=== PATIENT | female | born 1935 | race Caucasian/White ===

== ENCOUNTER 2017-09-27 23:04 | Emergency (ER) | payer OTHER ==
[~2017-09-27] VITALS: Ht 154.9 cm; Wt 68.0 kg
[~2017-09-27 23:04] MED LIST: AMOCLA875 PO; BP MED; CHOLESTEROL MED; DILT60ER PO; HYDR1TAB94 PO; Lovastatin20 MG PO; Norco 5-325 Ta1 EACH PO; PRAV20; Prednisone20 MG PO; VERA80 PO; Vibramycin100 MG PO; Vitamin D2000 UNIT PO
[2017-09-27] MEDS ORDERED: COMBIVENT RESPIM4 GM (23:42)
[2017-09-27] MEDS ORDERED: BUDE6HFA INH (23:43)
[2017-09-27 23:45] LABS: BASOPHILS ABSOLUTE AUTO 0.04 K/mm3 (0.00-0.23); BASOPHILS PERCENT AUTO 1 % (0-2); EOSINOPHILS ABSOLUTE AUTO 0.66 K/mm3 (0.00-0.68); EOSINOPHILS PERCENT AUTO 9 % (0-6); Hematocrit 39.8 % (33.0-51.0); IMMATURE GRAN ABSOLUTE AUTO 0.02 K/mm3 (0.00-0.10); IMMATURE GRAN PERCENT AUTO 0 % (0-1); LYMPHOCYTES ABSOLUTE AUTO 1.15 K/mm3 (0.84-5.20); LYMPHOCYTES PERCENT AUTO 15 % (21-46); MONOCYTES ABSOLUTE AUTO 0.59 K/mm3 (0.16-1.47); MONOCYTES PERCENT AUTO 8 % (4-13); Mean Corpuscular HGB 31.6 pg (26.0-34.0); Mean Corpuscular HGB Conc 32.7 g/dL (31.5-36.5); Mean Corpuscular Volume 97 fL (80-100); Mean Platelet Volume 8.9 fL (9.1-12.4); NEUTROPHILS ABSOLUTE AUTO 5.17 K/mm3 (1.96-9.15); NEUTROPHILS PERCENT AUTO 68 % (41-73); Platelet Count 259 K/mm3 (150-400); RDW Coefficient Variation 14.1 % (11.7-14.2); Red Blood Cell Count 4.12 M/mm3 (3.80-5.20); White Blood Cell Count 7.63 K/mm3 (4.00-11.30)
[2017-09-28 00:07] LABS: Alanine Aminotransfer (ALT/SGP 17 U/L (12-78); Albumin, Blood 3.5 g/dL (3.4-5.0); Albumin/Globulin Ratio 0.9 (0.8-1.8); Alk Phos 59 U/L (50-136); Anion Gap 7 mmol/L (6-16); Aspartate Aminotrans (AST/SGOT 23 U/L (12-37); Bilirubin, Total 0.4 mg/dL (0.1-1.0); Blood Urea Nitrogen 17 mg/dL (8-24); Bun/Creatinine Ratio 28.4 (12.0-20.0); CO2, Blood 28 mmol/L (21-32); Calcium, Blood 8.6 mg/dL (8.5-10.1); Chloride, Blood 107 mmol/L (98-108); Globulin, Blood 3.7 g/dL (2.2-4.0); Glomerular Filtration Rate >60 (60-); Glucose, Blood 89 mg/dL (70-99); Potassium, Blood 3.5 mmol/L (3.5-5.5); Sodium, Blood 142 mmol/L (136-145); Total Protein, Blood 7.2 g/dL (6.4-8.2); Troponin I <0.015 ng/mL (0.000-0.040)
[2017-09-28] MEDS ORDERED: Prednisone20 MG PO (00:21)
[2017-09-28] MEDS ORDERED: BENZ100A PO (00:21)
[2017-09-28] MEDS ORDERED: Zithromax250 MG PO (00:21)
[2017-09-28] MEDS ORDERED: ALBU2.5V5 NEB (00:54)
[2017-09-28] MEDS ORDERED: SUDOGEST SINUS1 EACH PO (00:54)
== END 2017-09-28 01:09 | disposition home or self-care (01) ==
LOC: ER 23:04
PROVIDERS: Emergency Medicine
DX: J44.1 Chronic obstructive pulmonary disease with (acute) exacerbation (principal); Z87.891 Personal history of nicotine dependence; Z88.2 Allergy status to sulfonamides; Z88.5 Allergy status to narcotic agent; Z79.899 Other long term (current) drug therapy
CPT/HCPCS: 36415; 71046; 80053; 84484; 85025; 93005; 93010; 94644; 96361; 96374; 99285-25; J2930; J7030

== ENCOUNTER 2017-10-21 20:00 | Inpatient (IN) | payer OTHER ==
[~2017-10-21] VITALS: Ht 157.5 cm; Wt 52.2 kg
[~2017-10-21 20:00] MED LIST changes: +ALBU2.5V5 NEB; +BENZ100A PO; +BUDE6HFA INH; +COMBIVENT RESPIM4 GM; +SUDOGEST SINUS1 EACH PO; +Zithromax250 MG PO
[2017-10-21 21:52] LABS: BASOPHILS ABSOLUTE AUTO 0.07 K/mm3 (0.00-0.23); BASOPHILS PERCENT AUTO 1 % (0-2); EOSINOPHILS PERCENT AUTO 4 % (0-6); Hematocrit 40.4 % (33.0-51.0); Hemoglobin 13.5 g/dL (11.5-16.0); IMMATURE GRAN ABSOLUTE AUTO 0.02 K/mm3 (0.00-0.10); IMMATURE GRAN PERCENT AUTO 0 % (0-1); LYMPHOCYTES ABSOLUTE AUTO 1.08 K/mm3 (0.84-5.20); LYMPHOCYTES PERCENT AUTO 12 % (21-46); MONOCYTES PERCENT AUTO 7 % (4-13); Mean Corpuscular HGB 31.6 pg (26.0-34.0); Mean Corpuscular HGB Conc 33.4 g/dL (31.5-36.5); Mean Corpuscular Volume 95 fL (80-100); Mean Platelet Volume 8.9 fL (9.1-12.4); NEUTROPHILS ABSOLUTE AUTO 7.04 K/mm3 (1.96-9.15); NEUTROPHILS PERCENT AUTO 77 % (41-73); Platelet Count 295 K/mm3 (150-400); RDW Coefficient Variation 13.7 % (11.7-14.2); RDW Standard Deviation 47.7 fL (35.1-46.3); Red Blood Cell Count 4.27 M/mm3 (3.80-5.20); White Blood Cell Count 9.21 K/mm3 (4.00-11.30)
[2017-10-21 22:16] LABS: Alanine Aminotransfer (ALT/SGP 24 U/L (12-78); Albumin, Blood 3.8 g/dL (3.4-5.0); Albumin/Globulin Ratio 1.1 (0.8-1.8); Alk Phos 50 U/L (50-136); Anion Gap 12 mmol/L (6-16); Aspartate Aminotrans (AST/SGOT 26 U/L (12-37); Bilirubin, Total 0.7 mg/dL (0.1-1.0); Blood Urea Nitrogen 10 mg/dL (8-24); Bun/Creatinine Ratio 20.4 (12.0-20.0); CO2, Blood 26 mmol/L (21-32); Calcium, Blood 9.4 mg/dL (8.5-10.1); Chloride, Blood 101 mmol/L (98-108); Creatinine, Blood 0.49 mg/dL (0.40-1.00); Globulin, Blood 3.6 g/dL (2.2-4.0); Glomerular Filtration Rate >60 (60-); Glucose, Blood 87 mg/dL (70-99); Potassium, Blood 3.3 mmol/L (3.5-5.5); Sodium, Blood 139 mmol/L (136-145); Total Protein, Blood 7.4 g/dL (6.4-8.2); Troponin I <0.015 ng/mL (0.000-0.040)
[2017-10-22 09:30] LABS: Hematocrit 42.5 % (33.0-51.0); Hemoglobin 13.7 g/dL (11.5-16.0); Mean Corpuscular HGB 31.2 pg (26.0-34.0); Mean Corpuscular HGB Conc 32.2 g/dL (31.5-36.5); Mean Corpuscular Volume 97 fL (80-100); Mean Platelet Volume 9.1 fL (9.1-12.4); Platelet Count 303 K/mm3 (150-400); RDW Coefficient Variation 13.8 % (11.7-14.2); RDW Standard Deviation 48.9 fL (35.1-46.3); Red Blood Cell Count 4.39 M/mm3 (3.80-5.20); White Blood Cell Count 6.56 K/mm3 (4.00-11.30)
[2017-10-22 09:47] LABS: Alanine Aminotransfer (ALT/SGP 20 U/L (12-78); Albumin, Blood 3.5 g/dL (3.4-5.0); Albumin/Globulin Ratio 0.9 (0.8-1.8); Alk Phos 51 U/L (50-136); Anion Gap 8 mmol/L (6-16); Aspartate Aminotrans (AST/SGOT 26 U/L (12-37); Bilirubin, Total 0.9 mg/dL (0.1-1.0); Blood Urea Nitrogen 10 mg/dL (8-24); Bun/Creatinine Ratio 17.6 (12.0-20.0); CO2, Blood 27 mmol/L (21-32); Calcium, Blood 8.4 mg/dL (8.5-10.1); Chloride, Blood 106 mmol/L (98-108); Creatinine, Blood 0.57 mg/dL (0.40-1.00); Globulin, Blood 3.8 g/dL (2.2-4.0); Glomerular Filtration Rate >60 (60-); Glucose, Blood 86 mg/dL (70-99); Sodium, Blood 141 mmol/L (136-145); Total Protein, Blood 7.3 g/dL (6.4-8.2)
[2017-10-23 08:29] LABS: Hematocrit 44.2 % (33.0-51.0); Hemoglobin 13.8 g/dL (11.5-16.0); Mean Corpuscular HGB 31.5 pg (26.0-34.0); Mean Corpuscular HGB Conc 31.2 g/dL (31.5-36.5); Platelet Count 301 K/mm3 (150-400); RDW Coefficient Variation 13.6 % (11.7-14.2); RDW Standard Deviation 51.2 fL (35.1-46.3); Red Blood Cell Count 4.38 M/mm3 (3.80-5.20); White Blood Cell Count 3.38 K/mm3 (4.00-11.30)
[2017-10-23 08:34] LABS: Anion Gap 14 mmol/L (6-16); Blood Urea Nitrogen 21 mg/dL (8-24); Bun/Creatinine Ratio 33.2 (12.0-20.0); CO2, Blood 21 mmol/L (21-32); Calcium, Blood 8.7 mg/dL (8.5-10.1); Chloride, Blood 106 mmol/L (98-108); Creatinine, Blood 0.63 mg/dL (0.40-1.00); Glomerular Filtration Rate >60 (60-); Glucose, Blood 59 mg/dL (70-99); Mean Corpuscular Volume 101 fL (80-100); Potassium, Blood 4.2 mmol/L (3.5-5.5); Sodium, Blood 141 mmol/L (136-145)
[2017-10-23 08:58] LABS: BAND PERCENT MAN 11 % (0-8); BASOPHILS ABSOLUTE MAN 0.06 K/mm3 (0.00-0.23); BASOPHILS PERCENT MAN 2 % (0-2); EOSINOPHILS ABSOLUTE MAN 0.16 K/mm3 (0.00-0.68); EOSINOPHILS PERCENT MAN 5 % (0-6); LYMPHOCYTES ABSOLUTE MAN 1.18 K/mm3 (0.84-5.20); LYMPHOCYTES PERCENT MAN 35 % (21-46); MONOCYTES ABSOLUTE MAN 0.37 K/mm3 (0.16-1.47); MONOCYTES PERCENT MAN 11 % (4-13); NEUTROPHILS ABSOLUTE MAN 1.58 K/mm3 (1.96-9.15); SEG NEUTROPHILS PERCENT MAN 36 % (41-73); TOTAL CELLS COUNTED 100
[2017-10-24 04:30] LABS: BASOPHILS ABSOLUTE AUTO 0.03 K/mm3 (0.00-0.23); BASOPHILS PERCENT AUTO 1 % (0-2); EOSINOPHILS ABSOLUTE AUTO 0.26 K/mm3 (0.00-0.68); EOSINOPHILS PERCENT AUTO 7 % (0-6); Hematocrit 41.2 % (33.0-51.0); Hemoglobin 13.2 g/dL (11.5-16.0); IMMATURE GRAN ABSOLUTE AUTO 0.01 K/mm3 (0.00-0.10); IMMATURE GRAN PERCENT AUTO 0 % (0-1); LYMPHOCYTES ABSOLUTE AUTO 0.54 K/mm3 (0.84-5.20); LYMPHOCYTES PERCENT AUTO 15 % (21-46); MONOCYTES ABSOLUTE AUTO 0.68 K/mm3 (0.16-1.47); MONOCYTES PERCENT AUTO 19 % (4-13); Mean Corpuscular HGB 30.8 pg (26.0-34.0); Mean Platelet Volume 9.1 fL (9.1-12.4); NEUTROPHILS ABSOLUTE AUTO 2.11 K/mm3 (1.96-9.15); NEUTROPHILS PERCENT AUTO 58 % (41-73); Platelet Count 292 K/mm3 (150-400); RDW Coefficient Variation 13.6 % (11.7-14.2); RDW Standard Deviation 47.9 fL (35.1-46.3); Red Blood Cell Count 4.29 M/mm3 (3.80-5.20); White Blood Cell Count 3.63 K/mm3 (4.00-11.30)
[2017-10-24 04:31] LABS: Mean Corpuscular Volume 96 fL (80-100)
[2017-10-24 04:48] LABS: Anion Gap 5 mmol/L (6-16); Blood Urea Nitrogen 31 mg/dL (8-24); CO2, Blood 33 mmol/L (21-32); Calcium, Blood 8.5 mg/dL (8.5-10.1); Chloride, Blood 102 mmol/L (98-108); Creatinine, Blood 0.48 mg/dL (0.40-1.00); Glomerular Filtration Rate >60 (60-); Glucose, Blood 151 mg/dL (70-99); Potassium, Blood 4.3 mmol/L (3.5-5.5); Sodium, Blood 140 mmol/L (136-145)
[2017-10-25 05:14] LABS: BASOPHILS ABSOLUTE AUTO 0.02 K/mm3 (0.00-0.23); BASOPHILS PERCENT AUTO 0 % (0-2); Hematocrit 40.6 % (33.0-51.0); LYMPHOCYTES ABSOLUTE AUTO 0.49 K/mm3 (0.84-5.20); LYMPHOCYTES PERCENT AUTO 10 % (21-46); MONOCYTES ABSOLUTE AUTO 0.72 K/mm3 (0.16-1.47); MONOCYTES PERCENT AUTO 14 % (4-13); Mean Corpuscular HGB 31.4 pg (26.0-34.0); Mean Corpuscular Volume 98 fL (80-100); Mean Platelet Volume 9.3 fL (9.1-12.4); Platelet Count 272 K/mm3 (150-400); RDW Coefficient Variation 13.9 % (11.7-14.2); RDW Standard Deviation 50.7 fL (35.1-46.3); Red Blood Cell Count 4.14 M/mm3 (3.80-5.20); White Blood Cell Count 5.17 K/mm3 (4.00-11.30)
[2017-10-25 05:16] LABS: EOSINOPHILS PERCENT AUTO 0 % (0-6); IMMATURE GRAN ABSOLUTE AUTO 0.04 K/mm3 (0.00-0.10); IMMATURE GRAN PERCENT AUTO 1 % (0-1); NEUTROPHILS PERCENT AUTO 75 % (41-73)
[2017-10-25 05:44] LABS: Anion Gap 7 mmol/L (6-16); Blood Urea Nitrogen 24 mg/dL (8-24); Bun/Creatinine Ratio 42.3 (12.0-20.0); CO2, Blood 33 mmol/L (21-32); Calcium, Blood 8.4 mg/dL (8.5-10.1); Chloride, Blood 101 mmol/L (98-108); Creatinine, Blood 0.57 mg/dL (0.40-1.00); Glomerular Filtration Rate >60 (60-); Glucose, Blood 164 mg/dL (70-99); Potassium, Blood 4.1 mmol/L (3.5-5.5); Sodium, Blood 141 mmol/L (136-145)
[2017-10-26 05:24] LABS: BASOPHILS ABSOLUTE AUTO 0.06 K/mm3 (0.00-0.23); BASOPHILS PERCENT AUTO 1 % (0-2); EOSINOPHILS ABSOLUTE AUTO 0.04 K/mm3 (0.00-0.68); EOSINOPHILS PERCENT AUTO 1 % (0-6); Hematocrit 39.5 % (33.0-51.0); Hemoglobin 12.5 g/dL (11.5-16.0); IMMATURE GRAN PERCENT AUTO 2 % (0-1); LYMPHOCYTES ABSOLUTE AUTO 0.75 K/mm3 (0.84-5.20); LYMPHOCYTES PERCENT AUTO 11 % (21-46); MONOCYTES ABSOLUTE AUTO 1.09 K/mm3 (0.16-1.47); MONOCYTES PERCENT AUTO 16 % (4-13); Mean Corpuscular HGB 30.6 pg (26.0-34.0); Mean Corpuscular HGB Conc 31.6 g/dL (31.5-36.5); Mean Corpuscular Volume 97 fL (80-100); Mean Platelet Volume 9.4 fL (9.1-12.4); NEUTROPHILS ABSOLUTE AUTO 4.74 K/mm3 (1.96-9.15); NEUTROPHILS PERCENT AUTO 70 % (41-73); Platelet Count 266 K/mm3 (150-400); RDW Coefficient Variation 13.9 % (11.7-14.2); RDW Standard Deviation 49.4 fL (35.1-46.3); Red Blood Cell Count 4.08 M/mm3 (3.80-5.20); White Blood Cell Count 6.78 K/mm3 (4.00-11.30)
[2017-10-26 05:41] LABS: Anion Gap 3 mmol/L (6-16); Blood Urea Nitrogen 23 mg/dL (8-24); Bun/Creatinine Ratio 51.1 (12.0-20.0); CO2, Blood 34 mmol/L (21-32); Calcium, Blood 8.3 mg/dL (8.5-10.1); Chloride, Blood 103 mmol/L (98-108); Creatinine, Blood 0.45 mg/dL (0.40-1.00); Glomerular Filtration Rate >60 (60-); Glucose, Blood 137 mg/dL (70-99); Sodium, Blood 140 mmol/L (136-145)
[2017-10-28 05:36] LABS: Anion Gap 7 mmol/L (6-16); Blood Urea Nitrogen 21 mg/dL (8-24); Bun/Creatinine Ratio 47.1 (12.0-20.0); CO2, Blood 25 mmol/L (21-32); Calcium, Blood 8.1 mg/dL (8.5-10.1); Chloride, Blood 105 mmol/L (98-108); Creatinine, Blood 0.45 mg/dL (0.40-1.00); Glomerular Filtration Rate >60 (60-); Glucose, Blood 120 mg/dL (70-99); Potassium, Blood 4.4 mmol/L (3.5-5.5); Sodium, Blood 137 mmol/L (136-145)
[2017-10-29] MEDS ORDERED: COMBIVENT RESPIM4 GM INH (18:36)
[2017-10-29] MEDS ORDERED: ACET325 PO (18:37)
[2017-10-29] MEDS ORDERED: ALBU2.5V5 NEB (18:39)
== END 2017-10-29 19:15 | disposition home or self-care (01) | DRG 336 ==
LOC: ER 20:00 → MEDS 10-22 01:38
PROVIDERS: Emergency Medicine; Internal Medicine; Student in an Organized Health Care Education/Training Program; Surgery
PROC: 0DQV4ZZ Repair Mesentery, Percutaneous Endoscopic Approach (ICD-10-PCS; principal; 2017-10-24 14:00)
PROC: 0DNU4ZZ Release Omentum, Percutaneous Endoscopic Approach (ICD-10-PCS; 2017-10-24 14:00)
DX: K56.609 Unspecified intestinal obstruction, unspecified as to partial versus complete obstruction (principal); G24.02 Drug induced acute dystonia; I10 Essential (primary) hypertension; T17.920A Food in respiratory tract, part unspecified causing asphyxiation, initial encounter; K46.9 Unspecified abdominal hernia without obstruction or gangrene; J44.9 Chronic obstructive pulmonary disease, unspecified; E78.5 Hyperlipidemia, unspecified; Z85.038 Personal history of other malignant neoplasm of large intestine; Z93.3 Colostomy status; M81.0 Age-related osteoporosis without current pathological fracture; E86.9 Volume depletion, unspecified; K59.00 Constipation, unspecified
CPT/HCPCS: 36415; 71045; 74019; 74177; 74250; 80048; 80053; 82947; 83605; 84484; 85025; 85027; 86850; 86900; 86901; 93005; 93010; 94010; 94640; 94664; 94667; 94760; 96361; 96374; 96375; 97110; 97116; 97162; 97530; 98960; 99285-25; G8978; G8979; J0690; J1100; J1170; J1200; J1650; J1885; J2250; J2370; J2405; J2550; J2710; J3010; J3480; J7030; J7120; Q9967

== ENCOUNTER 2017-10-30 20:55 | Emergency (ER) | payer OTHER ==
[~2017-10-30] VITALS: Ht 157.5 cm; Wt 52.2 kg
[~2017-10-30 20:55] MED LIST changes: +ACET325 PO; +COMBIVENT RESPIM4 GM INH
[2017-10-31 00:31] LABS: BASOPHILS ABSOLUTE AUTO 0.06 K/mm3 (0.00-0.23); BASOPHILS PERCENT AUTO 1 % (0-2); EOSINOPHILS ABSOLUTE AUTO 0.24 K/mm3 (0.00-0.68); EOSINOPHILS PERCENT AUTO 3 % (0-6); Hematocrit 37.2 % (33.0-51.0); Hemoglobin 12.2 g/dL (11.5-16.0); IMMATURE GRAN ABSOLUTE AUTO 0.57 K/mm3 (0.00-0.10); IMMATURE GRAN PERCENT AUTO 7 % (0-1); LYMPHOCYTES ABSOLUTE AUTO 1.07 K/mm3 (0.84-5.20); LYMPHOCYTES PERCENT AUTO 13 % (21-46); MONOCYTES ABSOLUTE AUTO 0.88 K/mm3 (0.16-1.47); MONOCYTES PERCENT AUTO 10 % (4-13); Mean Corpuscular HGB 31.9 pg (26.0-34.0); Mean Corpuscular HGB Conc 32.8 g/dL (31.5-36.5); Mean Corpuscular Volume 97 fL (80-100); Mean Platelet Volume 9.4 fL (9.1-12.4); NEUTROPHILS ABSOLUTE AUTO 5.71 K/mm3 (1.96-9.15); NEUTROPHILS PERCENT AUTO 67 % (41-73); Platelet Count 344 K/mm3 (150-400); RDW Coefficient Variation 13.6 % (11.7-14.2); Red Blood Cell Count 3.82 M/mm3 (3.80-5.20); White Blood Cell Count 8.53 K/mm3 (4.00-11.30)
[2017-10-31 00:39] LABS: Anion Gap 6 mmol/L (6-16); Blood Urea Nitrogen 16 mg/dL (8-24); Bun/Creatinine Ratio 28.1 (12.0-20.0); CO2, Blood 28 mmol/L (21-32); Calcium, Blood 8.1 mg/dL (8.5-10.1); Chloride, Blood 104 mmol/L (98-108); Creatinine, Blood 0.57 mg/dL (0.40-1.00); Glomerular Filtration Rate >60 (60-); Glucose, Blood 92 mg/dL (70-99); Potassium, Blood 3.6 mmol/L (3.5-5.5); Sodium, Blood 138 mmol/L (136-145)
[2017-10-31 00:49] LABS: BAND PERCENT MAN 2 % (0-8); BASOPHILS ABSOLUTE MAN 0.08 K/mm3 (0.00-0.23); BASOPHILS PERCENT MAN 1 % (0-2); EOSINOPHILS ABSOLUTE MAN 0.25 K/mm3 (0.00-0.68); EOSINOPHILS PERCENT MAN 3 % (0-6); LYMPHOCYTES ABSOLUTE MAN 0.93 K/mm3 (0.84-5.20); LYMPHOCYTES PERCENT MAN 11 % (21-46); METAMYELOCYTE ABSOLUTE MAN 0.17 K/mm3 (0.00-0.00); METAMYELOCYTE PERCENT MAN 2 % (0-0); MONOCYTES ABSOLUTE MAN 0.68 K/mm3 (0.16-1.47); MONOCYTES PERCENT MAN 8 % (4-13); MYELOCYTE ABSOLUTE MAN 0.17 K/mm3 (0.00-0.00); MYELOCYTE PERCENT MAN 2 % (0-0); NEUTROPHILS ABSOLUTE MAN 6.22 K/mm3 (1.96-9.15); SEG NEUTROPHILS PERCENT MAN 71 % (41-73); TOTAL CELLS COUNTED 100
== END 2017-10-31 04:43 | disposition home or self-care (01) ==
LOC: ER 20:55
PROVIDERS: Emergency Medicine
DX: L98.8 Other specified disorders of the skin and subcutaneous tissue (principal); G89.18 Other acute postprocedural pain; R10.9 Unspecified abdominal pain; Z88.2 Allergy status to sulfonamides; Z88.5 Allergy status to narcotic agent; Z88.8 Allergy status to other drugs, medicaments and biological substances; Z79.899 Other long term (current) drug therapy; J44.9 Chronic obstructive pulmonary disease, unspecified; Z87.891 Personal history of nicotine dependence; Z85.038 Personal history of other malignant neoplasm of large intestine
CPT/HCPCS: 36415; 74022; 80048; 85025; 93970; 96365; 99285-25

== ENCOUNTER → 2017-11-27 | Outpatient (CLI) | payer OTHER | END | disposition home or self-care (01) | LOC: LAB SHORT 13:24 → LAB 13:24 | DX: R30.0 Dysuria (principal) | CPT/HCPCS: 87077; 87086; 87186 ==

== ENCOUNTER 2021-11-20 00:12 | Emergency (ER) | payer OTHER ==
[~2021-11-20] VITALS: Ht 149.9 cm; Wt 47.6 kg
[2021-11-20 01:00] LABS: BASOPHILS ABSOLUTE AUTO 0.07 K/mm3 (0.00-0.23); BASOPHILS PERCENT AUTO 1 % (0-2); EOSINOPHILS ABSOLUTE AUTO 0.17 K/mm3 (0.00-0.68); EOSINOPHILS PERCENT AUTO 2 % (0-6); Hematocrit 44.2 % (33.0-51.0); Hemoglobin 14.3 g/dL (11.5-16.0); IMMATURE GRAN ABSOLUTE AUTO 0.01 K/mm3 (0.00-0.10); IMMATURE GRAN PERCENT AUTO 0 % (0-1); LYMPHOCYTES ABSOLUTE AUTO 2.57 K/mm3 (0.84-5.20); LYMPHOCYTES PERCENT AUTO 28 % (21-46); MONOCYTES ABSOLUTE AUTO 0.77 K/mm3 (0.16-1.47); MONOCYTES PERCENT AUTO 8 % (4-13); Mean Corpuscular HGB 30.3 pg (26.0-34.0); Mean Corpuscular HGB Conc 32.4 g/dL (31.5-36.5); Mean Corpuscular Volume 94 fL (80-100); Mean Platelet Volume 9.3 fL (9.1-12.4); NEUTROPHILS ABSOLUTE AUTO 5.71 K/mm3 (1.96-9.15); NEUTROPHILS PERCENT AUTO 61 % (41-73); Platelet Count 319 K/mm3 (150-400); RDW Coefficient Variation 14.2 % (11.7-14.2); RDW Standard Deviation 48.7 fL (35.1-46.3); Red Blood Cell Count 4.72 M/mm3 (3.80-5.20)
[2021-11-20 01:19] LABS: Albumin, Blood 3.3 g/dL (3.4-5.0); Albumin/Globulin Ratio 0.8 (0.8-1.8); Bilirubin, Total 0.3 mg/dL (0.1-1.0); Bun/Creatinine Ratio 38.2 (12.0-20.0); Calcium, Blood 9.3 mg/dL (8.5-10.1); Creatinine, Blood 0.45 mg/dL (0.40-1.00); Globulin, Blood 3.9 g/dL (2.2-4.0); Magnesium, Blood 2.1 mg/dL (1.6-2.4); Thyroid Stimulating Hormone 2.25 uIU/mL (0.360-4.800); Total Protein, Blood 7.2 g/dL (6.4-8.2)
== END 2021-11-20 03:42 | disposition home or self-care (01) ==
LOC: ER 00:12
PROVIDERS: Emergency Medicine
DX: I47.1 Supraventricular tachycardia (principal); J43.9 Emphysema, unspecified; Z87.891 Personal history of nicotine dependence; Z79.899 Other long term (current) drug therapy
CPT/HCPCS: 36415; 71045; 80053; 83735; 84443; 84484; 85025; 93005; 93010

== ENCOUNTER 2024-01-10 21:49 | Observation (INO) | payer OTHER ==
[~2024-01-10] VITALS: Ht 154.9 cm; Wt 47.3 kg
[2024-01-10] MEDS ORDERED: DILT60 PO (22:23)
[2024-01-10] MEDS ORDERED: LOSA50 PO (22:23)
[2024-01-10] MEDS ORDERED: IPRAT-ALBUT 0.5-3 ML INH (22:24)
[2024-01-10] MEDS ORDERED: TRELEGY ELLIPT1 EACH INH (22:24)
[2024-01-10 22:44] LABS: BASOPHILS ABSOLUTE AUTO 0.03 K/mm3 (0.00-0.23); BASOPHILS PERCENT AUTO 1 % (0-2); EOSINOPHILS ABSOLUTE AUTO 0.14 K/mm3 (0.00-0.68); EOSINOPHILS PERCENT AUTO 2 % (0-6); Hematocrit 38.9 % (33.0-51.0); IMMATURE GRAN ABSOLUTE AUTO 0.01 K/mm3 (0.00-0.10); IMMATURE GRAN PERCENT AUTO 0 % (0-1); LYMPHOCYTES ABSOLUTE AUTO 1.54 K/mm3 (0.84-5.20); LYMPHOCYTES PERCENT AUTO 24 % (21-46); MONOCYTES ABSOLUTE AUTO 0.54 K/mm3 (0.16-1.47); MONOCYTES PERCENT AUTO 8 % (4-13); Mean Corpuscular HGB 32.4 pg (26.0-34.0); Mean Corpuscular HGB Conc 33.4 g/dL (31.5-36.5); Mean Corpuscular Volume 97 fL (80-100); Mean Platelet Volume 9.1 fL (9.1-12.4); NEUTROPHILS PERCENT AUTO 66 % (41-73); Platelet Count 243 K/mm3 (150-400); RDW Coefficient Variation 14.3 % (11.7-14.2); RDW Standard Deviation 50.8 fL (35.1-46.3); Red Blood Cell Count 4.01 M/mm3 (3.80-5.20); White Blood Cell Count 6.56 K/mm3 (4.00-11.30)
[2024-01-10] MEDS ORDERED: NS 500 ML IV SCH (22:55)
[2024-01-10 23:05] LABS: Albumin, Blood 3.1 g/dL (3.4-5.0); Bilirubin, Total 0.5 mg/dL (0.1-1.0); Bun/Creatinine Ratio 39.3 (12.0-20.0); Calcium, Blood 8.7 mg/dL (8.5-10.1); Creatinine, Blood 0.56 mg/dL (0.40-1.00); Globulin, Blood 3.2 g/dL (2.2-4.0); Potassium, Blood 3.5 mmol/L (3.5-5.5); Total Protein, Blood 6.3 g/dL (6.4-8.2)
[2024-01-11] MEDS ORDERED: FLU VACC TS2024-25(6MOS UP)/PF 45 MCG/0.5 ML SYRINGE IM SCH (02:20)
[2024-01-11] MEDS ORDERED: Loperamide HCl 2 MG Cap PO PRN (02:40)
[2024-01-11] MEDS ORDERED: Lactated Ringer's 1,000 ML IV SCH ×2 (02:45→03:00)
[2024-01-11] MEDS ORDERED: Potassium Chl 20MEQ/Water100ML 100 ML IV SCH (02:55)
[2024-01-11 04:11] LABS: BASOPHILS ABSOLUTE AUTO 0.02 K/mm3 (0.00-0.23); BASOPHILS PERCENT AUTO 0 % (0-2); EOSINOPHILS ABSOLUTE AUTO 0.13 K/mm3 (0.00-0.68); EOSINOPHILS PERCENT AUTO 2 % (0-6); Hematocrit 38.1 % (33.0-51.0); Hemoglobin 12.7 g/dL (11.5-16.0); IMMATURE GRAN ABSOLUTE AUTO 0.01 K/mm3 (0.00-0.10); IMMATURE GRAN PERCENT AUTO 0 % (0-1); LYMPHOCYTES ABSOLUTE AUTO 1.43 K/mm3 (0.84-5.20); LYMPHOCYTES PERCENT AUTO 26 % (21-46); MONOCYTES ABSOLUTE AUTO 0.46 K/mm3 (0.16-1.47); MONOCYTES PERCENT AUTO 8 % (4-13); Mean Corpuscular HGB 32.5 pg (26.0-34.0); Mean Corpuscular HGB Conc 33.3 g/dL (31.5-36.5); Mean Corpuscular Volume 97 fL (80-100); Mean Platelet Volume 9.2 fL (9.1-12.4); NEUTROPHILS ABSOLUTE AUTO 3.49 K/mm3 (1.96-9.15); NEUTROPHILS PERCENT AUTO 63 % (41-73); Platelet Count 218 K/mm3 (150-400); RDW Coefficient Variation 14.4 % (11.7-14.2); RDW Standard Deviation 51.3 fL (35.1-46.3); Red Blood Cell Count 3.91 M/mm3 (3.80-5.20); White Blood Cell Count 5.54 K/mm3 (4.00-11.30)
[2024-01-11 04:30] LABS: Albumin/Globulin Ratio 0.9 (0.8-1.8); Bilirubin, Total 0.5 mg/dL (0.1-1.0); Bun/Creatinine Ratio 40.8 (12.0-20.0); Calcium, Blood 8.9 mg/dL (8.5-10.1); Creatinine, Blood 0.47 mg/dL (0.40-1.00); Globulin, Blood 3.3 g/dL (2.2-4.0); Potassium, Blood 3.6 mmol/L (3.5-5.5); Total Protein, Blood 6.3 g/dL (6.4-8.2)
[2024-01-11] MEDS ORDERED: Mag Sulfate 1 GM/D5% 100ML 100 ML IV STA (06:40)
[2024-01-11] MEDS ORDERED: Enoxaparin 30 MG/0.3 ML SYR SC SCH (09:00)
[2024-01-11] MEDS ORDERED: Apixaban 5 MG Tab PO SCH (11:00)
[2024-01-11] MEDS ORDERED: Atorvastatin 40 MG Tab PO SCH (11:00)
[2024-01-11] MEDS ORDERED: Metoprolol Succinate 25 MG TABCR PO SCH (11:00)
[2024-01-11 12:31] VITALS: BP 150/86
--- NOTE | 2024-01-11 14:30 | NUR ---
PT ARRIVED TO [facility] FROM ER VIA [facility] @ 1220. TELEMETRY MONITORING PLACED, HR 70s NSR ON MONITOR. PT ABLE TO AMBULATE FROM [facility] TO RESTROOM AND BACK TO BED WITH SBA. FAMILY AT BEDSIDE. PT HAS NO COMPLAINTS ON ARRIVAL TO ROOM. SEE DOCUMENTED VS AND ASSESSMENT. PT HAS BEEN RESTING QUIETLY IN BED WITH FAMILY IN ROOM SINCE ARRIVAL. MEDICATION GIVEN PER MD ORDERS. PT AMBULATING IN HALLWAY WITH HER FAMILY, GAIT STEADY. PT HAS HAD NO COMPLAINTS OR CONCERNS. PT AND FAMILY ORIENTED TO CALL LIGHT/ROOM AND UNIT ROUTINES. CALL LIGHT IN REACH AND BED IN LOWEST, LOCKED POSITION. WILL CONTINUE TO MONITOR.
[2024-01-11 17:19] VITALS: BP 144/74
--- NOTE | 2024-01-11 17:41 | NUR ---
NO ACUTE CHANGES SINCE ARRIVAL TO PCU. HR CONTINUES TO BE SINUS WITH OCCASIONAL PACED BEATS. PT UP AMBULATING WITH FAMILY IN THE HALLS FOR THE SECOND TIME THIS SHIFT. NO COMPLAINTS OR CONCERNS. PT REPORTS NO FURTHER PALPITATIONS SINCE ARRIVAL TO HOSPITAL. PT DENIES NEEDS AT THIS TIME. FAMILY AT BEDSIDE, CALL LIGHT IN REACH, BED IN LOWEST LOCKED POSITION. WILL CONTINUE TO MONITOR AND GIVE REPORT TO NOC SHIFT RN.
[2024-01-11 20:13] VITALS: BP 173/86
--- NOTE | 2024-01-11 21:50 | NUR ---
LATE ASSUMPTION OF CARE NOTE. PT AOX4, PLEASANT, COOPERATIVE WITH CARE, ABLE TO MAKE NEEDS KNOWN. DENIED PAIN THUS FAR THIS SHIFT. VITALS STABLE OUTSIDE OF ELEVATED BP. SPOKE WITH DR. ZAPATA WHO INFORMED THAT HE IS NOT WORRIED ABOUT IT UNLESS PATIENT SUSTAINS OVER 180 SYSTOLIC. TELE HAS SHOWN SINUS SINCE SHIFT ONSET. MAINTAINS ADEQUATE SATURATION ON ROOM AIR. CONTINENT THUS FAR, STEADY SBA TRANSFER. ANTICIPATING DISCHARGE TOMORROW. BED LOCKED IN LOWEST POSITION. CALL LIGHT LEFT WITHIN REACH. CONTINUING TO MONITOR.
[2024-01-12 00:40] VITALS: BP 152/97
--- NOTE | 2024-01-12 00:47 | NUR ---
0000 NOTE. PT SLEEPING AT TIME OF ENTERING ROOM FOR VITALS. DENIED ANY NEEDS OF ANY KIND. DENIED PAIN. NOTIFIED OF NEED TO INFORM STAFF ON VOIDING SO THAT WE CAN TRACK OUTPUT TO WHICH PT WAS AGREEABLE. OTHERWISE PT ENCOURAGED TO GET SOME MORE REST. BED LOCKED IN LOWEST POSITION. CALL LIGHT LEFT WITHIN REACH. CONTINUING TO MONITOR.
[2024-01-12 03:39] VITALS: BP 180/101
--- NOTE | 2024-01-12 04:22 | NUR ---
SHIFT SUMMARY. SHIFT HAS BEEN UNREMARKABLE. PT REMAINS AOX4, PLEASANT, COOPERATIVE WITH CARE, ABLE TO MAKE NEEDS KNOWN. CALLS APPROPRIATELY FOR ASSISTANCE. HAS BEEN ABLE TO REST COMFORTABLY THROUGHOUT ALMOST ENTIRETY OF SHIFT. BP HAS REMAINED SOMEWHAT ELEVATED THROUGHOUT SHIFT, DR. ZAPATA AWARE SEE PREVIOUS NOTE FOR DETAILS. PT CONTINUES TO DENY PAIN. IS INDEPENDENT TO BATHROOM AND CALLS APPROPRIATELY FOR NEEDED ASSISTANCE. CONTINUES TO RUN SINUS ON TELE, SPORADICALLY PACED. BED LOCKED IN LOWEST POSITION. CALL LIGHT LEFT WITHIN REACH. CONTINUING TO MONITOR.
[2024-01-12 04:35] VITALS: BP 175/92
[2024-01-12 08:11] VITALS: BP 161/79
[2024-01-12] MEDS ORDERED: Metoprolol Succinate 50 MG TABCR PO SCH (09:00)
[2024-01-12] MEDS ORDERED: AmLODIPine Besylate 5 MG Tab PO SCH (09:00)
[2024-01-12] MEDS ORDERED: AMLODIPINE BES2.5 MG PO (09:43)
[2024-01-12] MEDS ORDERED: METO50ER PO (09:44)
[2024-01-12] MEDS ORDERED: ATOR40TA PO (09:44)
[2024-01-12] MEDS ORDERED: ELIQUIS2.5 MG PO (09:44)
--- NOTE | 2024-01-12 10:59 | NUR ---
ASSUMED CARE OF PT AT 0700 THIS AM. NO ACUTE EVENTS OR TELEMETRY ABNORMALITIES REPORTED OVERNIGHT. PT IS CLEARED FOR DISCHARGE BY CARDIOLOGY THIS AM. DR PENG IN TO ROUND AND PLACED DISCHARGE ORDERS. PT HAS NO CONCERNS OR COMPLAINTS THIS AM. EAGER TO BE DISCHARGED. PT'S GRANDSON AT BEDSIDE FOR DISCHARGE TEACHING AND TRANSPORTATION. DISHCARGE INFORMATION REVIEWED WITH PT AND HER GRANDSON INCLUDING NEW MEDICATIONS, MEDICATION LIST, FOLLOW UP APPOINTMENTS AND DISCHARGE EDUCATION MATERIALS. PT/GRANDSON VERBALIZE UNDERSTANDING AND HAVE NO QUESTIONS OR CONCERNS AT THIS TIME. IV REMOVED. PT GIVEN VOUCHER FOR COST OF ELIQUIS. PRESCRIPTIONS FAXED TO [facility] PER PT REQUEST. PT IS AMBULATORY IN THE ROOM, STEADY GAIT. PT DISCHARGED VIA WHEELCHAIR INTO THE CARE OF HER GRANDON IN A PRIVATE VEHICHLE. ALL BELONGINGS SENT HOME WITH PT. NO FURTHER DISCHARGE NEEDS IDENTIFIED.
== END 2024-01-12 10:53 | disposition home or self-care (01) ==
LOC: ER 21:49 → ERHOLD 21:50 → PCU 21:50
PROVIDERS: Physician Assistant; Student in an Organized Health Care Education/Training Program; ADMIT Internal Medicine
DX: I48.0 Paroxysmal atrial fibrillation (principal); R79.1 Abnormal coagulation profile; I10 Essential (primary) hypertension; J43.9 Emphysema, unspecified; I25.10 Atherosclerotic heart disease of native coronary artery without angina pectoris; E78.5 Hyperlipidemia, unspecified; R19.7 Diarrhea, unspecified; Z66 Do not resuscitate; Z95.0 Presence of cardiac pacemaker; Z87.891 Personal history of nicotine dependence; Z79.899 Other long term (current) drug therapy; Z88.5 Allergy status to narcotic agent; Z88.2 Allergy status to sulfonamides; Z88.8 Allergy status to other drugs, medicaments and biological substances; Z85.038 Personal history of other malignant neoplasm of large intestine
CPT/HCPCS: 71046; 71260; 80053; 83735; 83880; 84484; 85025; 85379; 93005; 93010; 93306; 94762; 96361; 96365-59; 96366; 96368; 99285-25; A9270; G0378; J3475; J3480; J7030; J7120; Q9967

== ENCOUNTER 2024-03-07 18:11 | Observation (INO) | payer OTHER ==
[~2024-03-07] VITALS: Ht 154.9 cm; Wt 45.4 kg
[~2024-03-07 18:11] MED LIST changes: +AMLODIPINE BES2.5 MG PO; +ATOR40TA PO; +DILT60 PO; +ELIQUIS2.5 MG PO; +IPRAT-ALBUT 0.5-3 ML INH; +LOSA50 PO; +METO50ER PO; +TRELEGY ELLIPT1 EACH INH
[2024-03-07 18:41] LABS: BASOPHILS ABSOLUTE AUTO 0.03 K/mm3 (0.00-0.23); BASOPHILS PERCENT AUTO 0 % (0-2); EOSINOPHILS ABSOLUTE AUTO 0.02 K/mm3 (0.00-0.68); EOSINOPHILS PERCENT AUTO 0 % (0-6); Hematocrit 36.2 % (33.0-51.0); IMMATURE GRAN ABSOLUTE AUTO 0.02 K/mm3 (0.00-0.10); IMMATURE GRAN PERCENT AUTO 0 % (0-1); LYMPHOCYTES ABSOLUTE AUTO 0.66 K/mm3 (0.84-5.20); LYMPHOCYTES PERCENT AUTO 10 % (21-46); MONOCYTES ABSOLUTE AUTO 0.51 K/mm3 (0.16-1.47); MONOCYTES PERCENT AUTO 8 % (4-13); Mean Corpuscular HGB Conc 33.1 g/dL (31.5-36.5); Mean Corpuscular Volume 97 fL (80-100); Mean Platelet Volume 9.3 fL (9.1-12.4); NEUTROPHILS ABSOLUTE AUTO 5.45 K/mm3 (1.96-9.15); NEUTROPHILS PERCENT AUTO 82 % (41-73); Platelet Count 169 K/mm3 (150-400); RDW Coefficient Variation 14.2 % (11.7-14.2); RDW Standard Deviation 50.5 fL (35.1-46.3); Red Blood Cell Count 3.75 M/mm3 (3.80-5.20); White Blood Cell Count 6.69 K/mm3 (4.00-11.30)
[2024-03-07 18:48] LABS: CORONAVIRUS COVID-19 AG Negative (NEGATIVE); INFLUENZA A AG Positive (NEGATIVE); INFLUENZA B AG Negative (NEGATIVE)
[2024-03-07 18:56] LABS: Albumin/Globulin Ratio 0.8 (0.8-1.8); Bilirubin, Total 0.5 mg/dL (0.1-1.0); Bun/Creatinine Ratio 44.7 (12.0-20.0); Calcium, Blood 8.5 mg/dL (8.5-10.1); Creatinine, Blood 0.45 mg/dL (0.40-1.00); Globulin, Blood 3.6 g/dL (2.2-4.0); Potassium, Blood 3.3 mmol/L (3.5-5.5); Total Protein, Blood 6.6 g/dL (6.4-8.2)
[2024-03-07] MEDS ORDERED: Ipratropium Bromide INH 0.02% 0.5 mg/2.5ML Vial INH SCH (19:35)
[2024-03-07] MEDS ORDERED: Albuterol 2.5 MG/3 ML VIAL INH SCH (19:35)
[2024-03-07] MEDS ORDERED: MethylPREDNISolone Sod Succ 125 MG Vial IV ONE (19:45)
[2024-03-07] MEDS ORDERED: NS 500 ML IV SCH (20:45)
[2024-03-07] MEDS ORDERED: Diltiazem HCl 5 MG / ML 5ML Vial IV ONE ×2 (21:15→22:50)
[2024-03-07] MEDS ORDERED: Potassium Chloride 20 MEQ TabCR PO ONE (22:45)
[2024-03-07] MEDS ORDERED: NS 1,000 ML IV SCH (23:15)
[2024-03-08] MEDS ORDERED: Metoprolol Succinate 50 MG TABCR PO SCH (01:32)
[2024-03-08] MEDS ORDERED: Potassium Chloride 10 Meq Tablet SA PO ONE (01:35)
[2024-03-08] MEDS ORDERED: Albuterol 2.5 MG/3 ML VIAL INH PRN (01:40)
[2024-03-08] MEDS ORDERED: Ipratropium/Albuterol SulF 2.5-0.5MG/3 ML Amp INH PRN (01:40)
[2024-03-08] MEDS ORDERED: FLU VACC TS2024-25(6MOS UP)/PF 45 MCG/0.5 ML SYRINGE IM ONE (01:40)
[2024-03-08] MEDS ORDERED: Oseltamvir Phosphate 30 MG Cap PO SCH (09:00)
[2024-03-08 10:00] VITALS: BP 162/75
[2024-03-08] MEDS ORDERED: OSELTAMIVIR PHO3011 PO (10:23)
== END 2024-03-08 10:46 | disposition home or self-care (01) ==
LOC: ER 18:11 → ERHOLD 18:12
PROVIDERS: Student in an Organized Health Care Education/Training Program; ADMIT Student in an Organized Health Care Education/Training Program
DX: I48.91 Unspecified atrial fibrillation (principal); J96.01 Acute respiratory failure with hypoxia; E87.6 Hypokalemia; J10.1 Influenza due to other identified influenza virus with other respiratory manifestations; J44.1 Chronic obstructive pulmonary disease with (acute) exacerbation; I10 Essential (primary) hypertension; E78.5 Hyperlipidemia, unspecified; Z88.2 Allergy status to sulfonamides; Z88.5 Allergy status to narcotic agent; Z88.8 Allergy status to other drugs, medicaments and biological substances; Z79.01 Long term (current) use of anticoagulants; Z79.899 Other long term (current) drug therapy
CPT/HCPCS: 71045; 80053; 84484; 85025; 87428-QW; 93005; 93010; 94644; 94664; 96361; 96374; 96375; 96376; 99285-25; A9270; G0378; J2919; J7030

== ENCOUNTER 2024-03-08 20:24 | Inpatient (IN) | payer OTHER ==
[~2024-03-08] VITALS: Ht 154.9 cm; Wt 45.4 kg
[~2024-03-08 20:24] MED LIST changes: +OSELTAMIVIR PHO3011 PO
[2024-03-08 21:11] LABS: BASOPHILS ABSOLUTE AUTO 0.01 K/mm3 (0.00-0.23); BASOPHILS PERCENT AUTO 0 % (0-2); EOSINOPHILS PERCENT AUTO 0 % (0-6); Hematocrit 38.2 % (33.0-51.0); Hemoglobin 12.4 g/dL (11.5-16.0); IMMATURE GRAN ABSOLUTE AUTO 0.03 K/mm3 (0.00-0.10); IMMATURE GRAN PERCENT AUTO 0 % (0-1); LYMPHOCYTES ABSOLUTE AUTO 1.26 K/mm3 (0.84-5.20); LYMPHOCYTES PERCENT AUTO 11 % (21-46); MONOCYTES ABSOLUTE AUTO 0.51 K/mm3 (0.16-1.47); MONOCYTES PERCENT AUTO 5 % (4-13); Mean Corpuscular HGB 31.8 pg (26.0-34.0); Mean Corpuscular HGB Conc 32.5 g/dL (31.5-36.5); Mean Corpuscular Volume 98 fL (80-100); Mean Platelet Volume 9.5 fL (9.1-12.4); NEUTROPHILS ABSOLUTE AUTO 9.62 K/mm3 (1.96-9.15); NEUTROPHILS PERCENT AUTO 84 % (41-73); Platelet Count 181 K/mm3 (150-400); RDW Coefficient Variation 14.3 % (11.7-14.2); RDW Standard Deviation 51.3 fL (35.1-46.3); White Blood Cell Count 11.43 K/mm3 (4.00-11.30)
[2024-03-08 21:16] LABS: Base Excess Venous -3.8 mmol/L; Bicarbonate Venous 21.5 mmol/L (24.0-30.0); PCO2 Venous 39.2 mmHg (38-42); pH Blood Venous 7.35 (7.34-7.37)
[2024-03-08 21:33] LABS: Albumin, Blood 3.2 g/dL (3.4-5.0); Albumin/Globulin Ratio 0.8 (0.8-1.8); Bilirubin, Total 0.6 mg/dL (0.1-1.0); Bun/Creatinine Ratio 38.6 (12.0-20.0); Calcium, Blood 8.5 mg/dL (8.5-10.1); Creatinine, Blood 0.42 mg/dL (0.40-1.00); Potassium, Blood 4.1 mmol/L (3.5-5.5); Total Protein, Blood 7.2 g/dL (6.4-8.2)
[2024-03-08] MEDS ORDERED: CefTRIAXone Sodium 1,000 MG in NS 100 ML IV ONE (22:45)
[2024-03-08] MEDS ORDERED: Azithromycin 500 MG in NS 250 ML IV ONE (22:45)
[2024-03-08] MEDS ORDERED: FLU VACC TS2024-25(6MOS UP)/PF 45 MCG/0.5 ML SYRINGE IM SCH (23:50)
[2024-03-08] MEDS ORDERED: Acetaminophen 325 MG TABLET PO PRN (23:55)
[2024-03-09] MEDS ORDERED: Ipratropium/Albuterol SulF 2.5-0.5MG/3 ML Amp INH PRN (00:45)
[2024-03-09 05:59] LABS: BASOPHILS ABSOLUTE AUTO 0.01 K/mm3 (0.00-0.23); BASOPHILS PERCENT AUTO 0 % (0-2); EOSINOPHILS PERCENT AUTO 0 % (0-6); Hematocrit 35.7 % (33.0-51.0); Hemoglobin 11.6 g/dL (11.5-16.0); IMMATURE GRAN ABSOLUTE AUTO 0.05 K/mm3 (0.00-0.10); IMMATURE GRAN PERCENT AUTO 1 % (0-1); LYMPHOCYTES ABSOLUTE AUTO 0.69 K/mm3 (0.84-5.20); LYMPHOCYTES PERCENT AUTO 6 % (21-46); MONOCYTES PERCENT AUTO 4 % (4-13); Mean Corpuscular HGB Conc 32.5 g/dL (31.5-36.5); Mean Corpuscular Volume 99 fL (80-100); Mean Platelet Volume 9.2 fL (9.1-12.4); NEUTROPHILS ABSOLUTE AUTO 9.56 K/mm3 (1.96-9.15); NEUTROPHILS PERCENT AUTO 89 % (41-73); Platelet Count 182 K/mm3 (150-400); RDW Coefficient Variation 14.1 % (11.7-14.2); RDW Standard Deviation 51.9 fL (35.1-46.3); Red Blood Cell Count 3.62 M/mm3 (3.80-5.20); White Blood Cell Count 10.71 K/mm3 (4.00-11.30)
[2024-03-09 06:22] LABS: Albumin, Blood 2.8 g/dL (3.4-5.0); Albumin/Globulin Ratio 0.7 (0.8-1.8); Bilirubin, Total 0.4 mg/dL (0.1-1.0); Calcium, Blood 8.5 mg/dL (8.5-10.1); Creatinine, Blood 0.38 mg/dL (0.40-1.00); Magnesium, Blood 2.3 mg/dL (1.6-2.4); Potassium, Blood 3.9 mmol/L (3.5-5.5); Total Protein, Blood 6.8 g/dL (6.4-8.2)
[2024-03-09] MEDS ORDERED: PredniSONE 20 MG Tab PO SCH (09:00)
[2024-03-09] MEDS ORDERED: Oseltamvir Phosphate 30 MG Cap PO SCH (09:00)
[2024-03-09] MEDS ORDERED: Apixaban 5 MG Tab PO SCH (09:00)
[2024-03-09] MEDS ORDERED: Enoxaparin 40 MG/0.4 ML SYR SC SCH (09:00)
[2024-03-09] MEDS ORDERED: GuaiFENesin 600 MG TabCR PO SCH (09:00)
[2024-03-09] MEDS ORDERED: Lactobacil 2-S.Thermo-Bifido 1 1 Cap PO SCH (09:00)
[2024-03-09] MEDS ORDERED: Metoprolol Succinate 50 MG TABCR PO SCH (09:00)
[2024-03-09 16:21] VITALS: BP 182/90
--- NOTE | 2024-03-09 17:43 | NUR ---
SHIFT SUMMARY 1550 RECEIVED PT TO RM 364 VIA [employer] FROM ER. PT ADMITTED FOR RESP FAILURE R/T INFLUENZA A. PT ON 2L O2 COMING TO WITH BIOX @ 97%. O2 DECREASED TO 1L VIA N/C THIS EVENING. PT UP TO BTHRM WITH SBA D/T TUBING. MULTIPLE FAMILY IN AND OUT OF TO VISIT SINCE ADMISSION. SR @ 91 PER TELE. DENIES FURTHER NEEDS AT THIS TIME. CALL LT IN REACH.
[2024-03-09 19:31] VITALS: BP 153/69
[2024-03-09] MEDS ORDERED: CefTRIAXone Sodium 1,000 MG in NS 100 ML IV SCH (21:00)
[2024-03-09] MEDS ORDERED: Azithromycin 500 MG in NS 250 ML IV SCH (21:00)
[2024-03-10] MEDS ORDERED: Albuterol HFA200 ACT/6.7 GM INH INH PRN (00:15)
[2024-03-10 03:24] VITALS: BP 175/92
[2024-03-10] MEDS ORDERED: HydrALAZINE HCl 20 MG / ML 1ML Vial IV PRN (04:10)
--- NOTE | 2024-03-10 04:31 | NUR ---
TRUCK DRIVER SUPERVISOR SUMMARY BP ELEVATED, OTHERWISE VSS. NOTIFIED AND ANTIHYPERTENSIVE ORDERED - SEE MAY FOR DETAILS. CONTINUES ON DROPLET PRECAUTIONS FOR INFLUENZA. ALERT AND ORIENTED, GRANDDAUGHTER IN ROOM TO ASSIST WITH REPOSITIONING, ETC. PT COOPERATIVE WITH CARE. O2 AT 1L/MIN AND O2 SATS IN THE 90'S. HAS BEEN RESTING QUIETLY WITH OCCASIONAL INTERRUPTION. HOB ELEVATED FOR RESP COMFORT. CALL LIGHT IN REACH, RAILS UP X 2 AND BED IN LOW POSITION FOR SAFETY. WILL CONT TO MONITOR
[2024-03-10 05:06] VITALS: BP 159/78
[2024-03-10 07:24] VITALS: BP 141/70
[2024-03-10] MEDS ORDERED: TRELEGY ELLIPTA INHALER INH SCH (09:00)
[2024-03-10] MEDS ORDERED: Spironolactone 25 MG Tab PO SCH (13:00)
[2024-03-10] MEDS ORDERED: Spironolactone 12.5 MG TAB PO SCH (13:00)
[2024-03-10 16:08] VITALS: BP 152/76
--- NOTE | 2024-03-10 17:44 | NUR ---
SHIFT SUMMARY PT AWAKE DURING SHIFT REPORT, WITH FAMILY IN RM AT BS. PT'S BIOX REMAINS 97-98% ON 1L O2. PT DOES WELL ON RA AT REST, BUT DOES GET SOB WITH ACTIVITY. GETTING UP TO BTHRM OR RECLINER PT DESATS TO 86-88% ON RA. LUNGS T/O DIMINISHED, WITH FAINT EXP WHEEZES. DR PENG IN TO SEE PT AND DISCUSS PLAN OF CARE. NEW ORDERS PLACED. SPIRONOLACTON GIVEN PER EMAR TO HELP WITH FLUID IN LUNGS. PT UP TO RECLINER MOST OF THE DAY. EATING AND DRINKING WELL. NO FURTHER NEEDS AT THIS TIME. CALL LT IN REACH. FAMILY IN RM AT ALL TIMES.
[2024-03-10] MEDS ORDERED: DILT60 PO (18:03)
[2024-03-10 19:17] VITALS: BP 156/68
[2024-03-10 19:19] VITALS: BP 156/68
--- NOTE | 2024-03-11 04:10 | NUR ---
SHIFT SUMMARY A&O, VSS, REMAINS ON 1L OF O2 W/SPO2= 95%, FAMILY AT BEDSIDE T/O SHIFT, DENIES PAIN, SLEPT T/O THE NIGHT, SLEEPING AT THIS TIME, CALL LIGHT IN REACH, WILL CONT TO MONITOR UNTIL REPORT GIVEN TO ONCOMING NURSE.
[2024-03-11 04:52] VITALS: BP 191/83
[2024-03-11 05:26] VITALS: BP 181/83
[2024-03-11 05:31] LABS: Hematocrit 35.8 % (33.0-51.0); Mean Corpuscular HGB 32.4 pg (26.0-34.0); Mean Corpuscular HGB Conc 33.5 g/dL (31.5-36.5); Mean Corpuscular Volume 97 fL (80-100); Mean Platelet Volume 9.1 fL (9.1-12.4); NRBC ABSOLUTE 0.02 K/mm3 (0.00-0.02); NRBC Auto 0.3 /100 WBC (0.0-0.2); Platelet Count 181 K/mm3 (150-400); RDW Coefficient Variation 14.2 % (11.7-14.2); RDW Standard Deviation 50.4 fL (35.1-46.3); White Blood Cell Count 7.33 K/mm3 (4.00-11.30)
[2024-03-11 05:46] LABS: Bun/Creatinine Ratio 28.2 (12.0-20.0); Calcium, Blood 8.5 mg/dL (8.5-10.1); Creatinine, Blood 0.43 mg/dL (0.40-1.00); Potassium, Blood 3.7 mmol/L (3.5-5.5)
[2024-03-11 05:51] LABS: BASOPHILS PERCENT MAN 0 % (0-2); EOSINOPHILS PERCENT MAN 0 % (0-6); LYMPHOCYTES % ATYPICAL MANUAL 5 % (0-0); LYMPHOCYTES ABSOLUTE MAN 1.17 K/mm3 (0.84-5.20); LYMPHOCYTES PERCENT MAN 11 % (21-46); MONOCYTES PERCENT MAN 11 % (4-13); NEUTROPHILS ABSOLUTE MAN 5.35 K/mm3 (1.96-9.15); SEG NEUTROPHILS PERCENT MAN 73 % (41-73); TOTAL CELLS COUNTED 100
[2024-03-11 05:57] VITALS: BP 128/65
--- NOTE | 2024-03-11 06:11 | NUR ---
AFIB- CONVERTED FROM SR 60' TO AFIB 120 @ 0600, REPORTED TO DR NG @ 0665.
[2024-03-11] MEDS ORDERED: Metoprolol Tartrate 1 MG/ML 5 ML VIAL IV ONE (06:45)
[2024-03-11 08:29] VITALS: BP 119/74
[2024-03-11] MEDS ORDERED: TRELEGY ELLIPTA INHALER INH SCH (09:30)
[2024-03-11] MEDS ORDERED: Potassium Chloride 20 MEQ TabCR PO ONE (10:00)
[2024-03-11] MEDS ORDERED: dilTIAZem HCL 60 MG CAP.SR PO SCH ×2 (10:00→21:00)
[2024-03-11] MEDS ORDERED: dilTIAZem HCL 30 MG TAB PO PRN (13:30)
[2024-03-11 13:53] VITALS: BP 132/92
[2024-03-11 16:06] VITALS: BP 106/87
--- NOTE | 2024-03-11 16:10 | NUR ---
1000 TELE CALLED RN TO NOTIFY RN OF PT TELE HR 120-160'2 A-FIB NO OVERT S/S- WHEN ASKED, PT DENIES CHEST PAIN, SHE STATES "MAYBE A LITTLE SOB". HOLDING A GOOD BLOOD PRESURE. MEDS BEING ADJUSTED PER DR PENG. RATE CAME DOWN 110-140'S FROM ABOUT [phone]. TELE CALLED AGAIN THAT HR WAS SURGING UP INTO THE 160'S AGAIN. CALLED DR PENG AT 1300 AND AGAIN AT 1330. MEDS BEING ADJSTED.
--- NOTE | 2024-03-11 17:29 | NUR ---
sUMMARY- PT A/O X3-4, 1 SBA TO BATHROOM. VOIDING WITHOUT DIFFICULTY, HAD 2 BM'S TODAY. TELE, CONVERTED TO A FIB THIS AM, RATE CONSISTANTLY 140-160'S, ASYMPTOMATIC. HOLDING A BLOOD PRESSURE/MAP. DR PENG ADJUSTING MEDS. PT CONT WITH OXYGEN 2L/NC, SATS 94-96%. DESAT MID 80'S ON ROOM AIR. WILL REPORT TO NOC RN
[2024-03-11] MEDS ORDERED: dilTIAZem HCL 90 MG CAP.ER.12H PO SCH (21:00)
[2024-03-12 04:31] VITALS: BP 189/91
[2024-03-12 05:11] LABS: Hematocrit 37.4 % (33.0-51.0); Mean Corpuscular HGB 31.4 pg (26.0-34.0); Mean Corpuscular HGB Conc 32.1 g/dL (31.5-36.5); Mean Corpuscular Volume 98 fL (80-100); Mean Platelet Volume 9.2 fL (9.1-12.4); Platelet Count 236 K/mm3 (150-400); RDW Coefficient Variation 14.2 % (11.7-14.2); RDW Standard Deviation 51.2 fL (35.1-46.3); Red Blood Cell Count 3.82 M/mm3 (3.80-5.20)
[2024-03-12 05:28] LABS: Bun/Creatinine Ratio 29.9 (12.0-20.0); Calcium, Blood 8.3 mg/dL (8.5-10.1); Creatinine, Blood 0.5 mg/dL (0.40-1.00)
[2024-03-12 05:42] VITALS: BP 132/78
[2024-03-12 06:04] LABS: BAND PERCENT MAN 2 % (0-8); BASOPHILS PERCENT MAN 0 % (0-2); EOSINOPHILS ABSOLUTE MAN 0.08 K/mm3 (0.00-0.68); EOSINOPHILS PERCENT MAN 1 % (0-6); LYMPHOCYTES % ATYPICAL MANUAL 2 % (0-0); LYMPHOCYTES ABSOLUTE MAN 1.29 K/mm3 (0.84-5.20); LYMPHOCYTES PERCENT MAN 13 % (21-46); MONOCYTES ABSOLUTE MAN 0.77 K/mm3 (0.16-1.47); MONOCYTES PERCENT MAN 9 % (4-13); MYELOCYTE ABSOLUTE MAN 0.08 K/mm3 (0.00-0.00); MYELOCYTE PERCENT MAN 1 % (0-0); NEUTROPHILS ABSOLUTE MAN 6.36 K/mm3 (1.96-9.15); SEG NEUTROPHILS PERCENT MAN 72 % (41-73); TOTAL CELLS COUNTED 100
--- NOTE | 2024-03-12 06:13 | NUR ---
SHIFT SUMMARY; PATIENT SLEPT IN SHORT INTERVALS, REMAINS IN DROPLET ISOLATION D/T FLU. GR DAUGHTER STAYED ALL NIGHT. WAS UPSET ABOUT BP MEDS BEING ALTERED. TELE A FIB, RATE OF AROUND 100. DID HAVE TO GIVEN PRN APRESOLINE FOR BP OF 189/91 WITH HR OF 106. REPEAT BP 138/90- HR 102.
[2024-03-12 07:10] VITALS: BP 148/77
[2024-03-12] MEDS ORDERED: Enoxaparin 40 MG/0.4 ML SYR SC SCH (09:00)
[2024-03-12] MEDS ORDERED: dilTIAZem HCL 60 MG CAP.SR PO ONE (09:55)
[2024-03-12] MEDS ORDERED: PRED20 PO (11:11)
[2024-03-12] MEDS ORDERED: VISBIOME 112.51 EACH PO (11:12)
[2024-03-12] MEDS ORDERED: AUGMENTIN 500-1 EACH PO (11:22)
--- NOTE | 2024-03-12 15:36 | NUR ---
DISCHARGE NOTE PT A&OX4. PT ADMITTED DUE TO ACUTE RESPIRATORY FAILURE WITH HYPOXEMIA. PT HAD HOME O2 EVAL TODAY. RT NOTIFIED PT WILL NEED 4L. PT SPO2 AT REST TODAY WAS 96%. PT HAD CONT. PULSE OX ON. CARE MANAGEMENT ARRANGED O2 DELIVERY, PT GOT O2 DELIVERED. PT EATS ADEQUATE. PT REPORTS SOME SOB WITH EXERTION. PT ON TELE, TELE CALLED TO REPORT RUN OF AFIB RVR DURING AMBULATION. PT WORKED WITH PHYSICAL THERAPY, PHYSICAL THERAPIST CLEARED HER FROM THEIR CARE. MEDS FAXED TO PHARMACY. PT EDUCATED ON DISCHARGE INSTRUCTIONS AND MEDS. PT ESCORTED OUT BY ACCESSIBILITY LIFT TECHNICIAN VIA WHEELCHAIR AT 1530. FAMILY WAS PRESENT THROUGH SHIFT. PT WENT HOME WITH PERSONAL ITEMS. IV D/C'D AND TELE, AND CONT. PULSE OX.
[2024-03-12] MEDS ORDERED: dilTIAZem HCL 90 MG CAP.ER.12H PO SCH (21:00)
== END 2024-03-12 15:24 | disposition home or self-care (01) | DRG 193 ==
LOC: ER 20:24 → ERHOLD 20:25 → ER 20:25 → MEDS 20:26 → ERHOLD 03-09 15:42 → MEDS 03-10 15:05
PROVIDERS: Internal Medicine; Student in an Organized Health Care Education/Training Program; ADMIT Student in an Organized Health Care Education/Training Program
DX: J10.00 Influenza due to other identified influenza virus with unspecified type of pneumonia (principal); J96.01 Acute respiratory failure with hypoxia; J44.1 Chronic obstructive pulmonary disease with (acute) exacerbation; J44.0 Chronic obstructive pulmonary disease with (acute) lower respiratory infection; I48.91 Unspecified atrial fibrillation; Z95.0 Presence of cardiac pacemaker; I10 Essential (primary) hypertension; Z79.01 Long term (current) use of anticoagulants; Z98.890 Other specified postprocedural states; Z85.048 Personal history of other malignant neoplasm of rectum, rectosigmoid junction, and anus; Z92.21 Personal history of antineoplastic chemotherapy; Z87.891 Personal history of nicotine dependence; Z88.5 Allergy status to narcotic agent; Z88.2 Allergy status to sulfonamides; Z88.8 Allergy status to other drugs, medicaments and biological substances; Z79.899 Other long term (current) drug therapy; Z99.81 Dependence on supplemental oxygen
CPT/HCPCS: 36415; 71045; 80048; 80053; 82803; 83735; 83880; 84145; 84484; 85025; 93005; 93010; 94640; 94660; 94664; 94761; 94762; 96365; 96375; 96376; 99285-25; A9270; G0378; J0360; J0456; J0696; J1650; J7050; J7512

== ENCOUNTER 2024-06-24 20:19 | Emergency (ER) | payer OTHER ==
[~2024-06-24] VITALS: Ht 154.9 cm; Wt 44.5 kg
[~2024-06-24 20:19] MED LIST changes: +AUGMENTIN 500-1 EACH PO; +PRED20 PO; +VISBIOME 112.51 EACH PO
[2024-06-24 20:47] LABS: BASOPHILS ABSOLUTE AUTO 0.05 K/mm3 (0.00-0.23); BASOPHILS PERCENT AUTO 0 % (0-2); EOSINOPHILS ABSOLUTE AUTO 0.18 K/mm3 (0.00-0.68); EOSINOPHILS PERCENT AUTO 1 % (0-6); Hematocrit 36.5 % (33.0-51.0); Hemoglobin 12.1 g/dL (11.5-16.0); IMMATURE GRAN ABSOLUTE AUTO 0.08 K/mm3 (0.00-0.10); IMMATURE GRAN PERCENT AUTO 1 % (0-1); LYMPHOCYTES ABSOLUTE AUTO 0.66 K/mm3 (0.84-5.20); LYMPHOCYTES PERCENT AUTO 5 % (21-46); MONOCYTES ABSOLUTE AUTO 0.61 K/mm3 (0.16-1.47); MONOCYTES PERCENT AUTO 4 % (4-13); Mean Corpuscular HGB 31.2 pg (26.0-34.0); Mean Corpuscular HGB Conc 33.2 g/dL (31.5-36.5); Mean Corpuscular Volume 94 fL (80-100); Mean Platelet Volume 9.6 fL (9.1-12.4); NEUTROPHILS ABSOLUTE AUTO 13.11 K/mm3 (1.96-9.15); NEUTROPHILS PERCENT AUTO 89 % (41-73); Platelet Count 289 K/mm3 (150-400); RDW Coefficient Variation 15.8 % (11.7-14.2); RDW Standard Deviation 53.7 fL (35.1-46.3); Red Blood Cell Count 3.88 M/mm3 (3.80-5.20); White Blood Cell Count 14.69 K/mm3 (4.00-11.30)
[2024-06-24 21:06] LABS: Albumin/Globulin Ratio 0.7 (0.8-1.8); Bun/Creatinine Ratio 35.4 (12.0-20.0); Calcium, Blood 8.8 mg/dL (8.5-10.1); Creatinine, Blood 0.4 mg/dL (0.40-1.00); Globulin, Blood 4.2 g/dL (2.2-4.0); Potassium, Blood 3.6 mmol/L (3.5-5.5); Total Protein, Blood 7.2 g/dL (6.4-8.2)
[2024-06-24 21:09] LABS: Source, Urine Clean Catch
[2024-06-24 21:11] LABS: Bilirubin, Urine Neg (Neg); Blood, Urine 2+ (Neg); Glucose Qualitative, Urine Neg (Neg); Ketones, Urine Neg (Neg); Leukocyte Esterase, Urine Neg (Neg); Nitrite, Urine Neg (Neg); Protein, Urine 2+ (Neg); Urobilinogen, Urine NORM (Normal)
[2024-06-24 21:17] LABS: Appearance, Urine Clear (Clear); Color, Urine Yellow (P-Yellow)
[2024-06-24 21:18] LABS: Bacteria Rare /hpf; Squamous Epithelial Cells Rare /hpf (Few); White Blood Cells, Urine 0-2 /hpf (0-5)
[2024-06-24] MEDS ORDERED: Lactated Ringer's 500 ML IV ONE (21:25)
[2024-06-24 22:30] LABS: Influenza A, PCR NEGATIVE (NEGATIVE); Influenza B, PCR NEGATIVE (NEGATIVE); Resp Syncytial Virus, PCR NEGATIVE (NEGATIVE); SARS-Cov-2 (COVID-19) PCR, MMC NEGATIVE (NEGATIVE)
[2024-06-24] MEDS ORDERED: AMOCLA875 PO (22:54)
[2024-06-24] MEDS ORDERED: CefTRIAXone Sodium 1,000 MG in NS 100 ML IV ONE (22:55)
[2024-06-24 23:30] VITALS: BP 125/93
== END 2024-06-24 23:44 | disposition home or self-care (01) ==
LOC: ER 20:19
PROVIDERS: Student in an Organized Health Care Education/Training Program
DX: J18.9 Pneumonia, unspecified organism (principal); R53.81 Other malaise; Z87.440 Personal history of urinary (tract) infections; Z87.891 Personal history of nicotine dependence; I10 Essential (primary) hypertension; J44.9 Chronic obstructive pulmonary disease, unspecified; E78.5 Hyperlipidemia, unspecified; I48.91 Unspecified atrial fibrillation; Z88.2 Allergy status to sulfonamides; Z88.5 Allergy status to narcotic agent; Z88.8 Allergy status to other drugs, medicaments and biological substances; Z79.899 Other long term (current) drug therapy; Z79.1 Long term (current) use of non-steroidal anti-inflammatories (NSAID); Z79.890 Hormone replacement therapy; Z79.51 Long term (current) use of inhaled steroids; Z79.52 Long term (current) use of systemic steroids; Z79.83 Long term (current) use of bisphosphonates
CPT/HCPCS: 0241U; 71046; 80053; 81001; 84484; 85025; 93005; 93010; 96365; 99285-25; A6590; J0696; J7120